=== PATIENT | female | born 1990 | race African-American/Black ===

== ENCOUNTER 2016-08-24 23:29 | Emergency (ER) | payer MEDICAID ==
[~2016-08-24] VITALS: Ht 170.2 cm; Wt 136.0 kg
[~2016-08-24 23:29] MED LIST: LORA-250 PO
[2016-08-25 00:40] LABS: BASOPHILS % 0.7 % (0.0-2.0); EOSINOPHILS % 2.6 % (0.0-5.0); HEMATOCRIT. 36.8 % (36.0-48.0); HEMOGLOBIN. 12.2 g/dL (12.0-16.0); LYMPHOCYTES % 39.2 % (20.0-50.0); MEAN CORPUSCULAR HEMOGLOBIN 26.9 pg (28.0-32.0); MEAN CORPUSCULAR VOLUME 81.3 fL (81.0-99.0); MEAN PLATELET VOLUME 7.6 fl (7.4-10.4); MONOCYTES % 8.5 % (2.0-8.0); PLATELET 294 x1000/uL (130-400); RED BLOOD CELL COUNT 4.52 mill/uL (4.2-5.4); RED CELL DISTRIBUTION WIDTH 14.4 % (11.6-14.6)
[2016-08-25 00:50] LABS: CARBON DIOXIDE 24 mEq/L (21-32); CHLORIDE 106 mEq/L (98-107); TROPONIN I < 0.02 ng/mL (0.00-0.04)
[2016-08-25 02:00] VITALS: BP 116/77
== END 2016-08-25 02:42 | disposition home or self-care (01) ==
LOC: ER 23:30
DX: R07.9 Chest pain, unspecified (principal); Z88.6 Allergy status to analgesic agent
CPT/HCPCS: 36415; 71010; 80053; 81025; 84484; 85025; 93005; 99285; Z7610